=== PATIENT | female | born 1975 | race Caucasian/White ===

== ENCOUNTER 2017-01-15 22:40 | Emergency (ER) | payer SELFPAY ==
[~2017-01-15] VITALS: Ht 165.1 cm; Wt 98.0 kg
[2017-01-16] MEDS ORDERED: SODIUM CHLORIDE 0.9% 1,000 ML IV ONE (00:36)
[2017-01-16] MEDS: AMPICILLIN SOD/SULBACTAM NA 3 G in SODIUM CHLORIDE 0.9% 100 ML IV SCH ×2 (00:45→06:45)
[2017-01-16 00:59] LABS: CHLORIDE 100 mEq/L (98-107); EOSINOPHILS % 1.1 % (0.0-5.0); HEMATOCRIT. 37.7 % (36.0-48.0); HEMOGLOBIN. 12.7 g/dL (12.0-16.0); LYMPHOCYTES % 44.1 % (20.0-50.0); MEAN CORPUSCULAR HEMOGLOBIN 28.3 pg (28.0-32.0); MEAN CORPUSCULAR VOLUME 83.9 fL (81.0-99.0); MEAN PLATELET VOLUME 11.4 fl (7.4-10.4); NEUTROPHILS % 45.8 % (40.0-76.0); PLATELET 209 x1000/uL (130-400); RED BLOOD CELL COUNT 4.49 mill/uL (4.2-5.4)
[2017-01-16 01:00] LABS: CLARITY URINE CLEAR (CLEAR); COLOR URINE DARK YELLOW (YELLOW); GLUCOSE URINE 3+ (NEGATIVE); KETONES URINE TRACE (NEGATIVE); LEUKOCYTE ESTERASE URINE NEGATIVE (NEGATIVE); NITRITE URINE NEGATIVE (NEGATIVE); OCCULT BLOOD URINE TRACE (NEGATIVE); PH URINE 5.5 (4.5-8.0); PROTEIN URINE NEGATIVE (NEGATIVE); SPECIFIC GRAVITY URINE 1.028 (1.005-1.030)
[2017-01-16 01:08] LABS: CARBON DIOXIDE 26 mEq/L (21-32)
[2017-01-16] MEDS ORDERED: HYDROCODONE/ACETAMINOPHEN 5/325MG TABLET PO ONE (04:15)
[2017-01-16 08:32] VITALS: BP 147/79
== END 2017-01-16 09:37 | disposition left against medical advice (07) ==
LOC: EDBD 22:40 → ER 22:42 → CANBEDREQ 01-16 05:59 → ER 01-16 09:37 → CANBEDREQ 01-16 22:45
DX: E11.52 Type 2 diabetes mellitus with diabetic peripheral angiopathy with gangrene (principal); F17.200 Nicotine dependence, unspecified, uncomplicated
CPT/HCPCS: 36415; 71010; 73660; 80053; 81001; 81025; 85025; 85610; 87040; 96365; 96366; 99285; J0295; J7030; Z7610; J7050

== ENCOUNTER 2019-01-16 15:30 | Inpatient (IN) | payer OTHER, MEDICAID ==
[~2019-01-16] VITALS: Ht 167.6 cm; Wt 85.3 kg
[2019-01-16 16:37] LABS: BASOPHILS % 2.1 % (0.0-2.0); EOSINOPHILS % 0.6 % (0.0-5.0); HEMATOCRIT. 37.8 % (36.0-48.0); LYMPHOCYTES % 16.7 % (20.0-50.0); MEAN CORPUSCULAR HEMOGLOBIN 25.7 pg (28.0-32.0); MEAN CORPUSCULAR VOLUME 81.1 fL (81.0-99.0); MEAN PLATELET VOLUME 9.2 fl (7.4-10.4); MONOCYTES % 8.4 % (2.0-8.0); NEUTROPHILS % 72.2 % (40.0-76.0); PLATELET 283 x1000/uL (130-400); RED BLOOD CELL COUNT 4.66 mill/uL (4.2-5.4); RED CELL DISTRIBUTION WIDTH 20.6 % (11.6-14.6)
[2019-01-16 16:41] LABS: INR 1.1; PROTHROMBIN TIME 11.5 sec (9.6-11.0)
[2019-01-16 16:44] LABS: CHLORIDE 110 mEq/L (98-107)
[2019-01-16 17:00] LABS: B-HCG QUANTITATIVE < 1 mIU/mL (<3)
[2019-01-16 17:01] LABS: HCG SCREEN NEGATIVE
[2019-01-16] MEDS ORDERED: FUROSEMIDE 40MG/4ML VIAL IVP NR (17:45)
[2019-01-16 19:00] LABS: UCG SCREEN NEGATIVE
[2019-01-16 19:02] LABS: CLARITY URINE TURBID (CLEAR); COLOR URINE DARK YELLOW (YELLOW); KETONES URINE TRACE (NEGATIVE); LEUKOCYTE ESTERASE URINE 1+ (NEGATIVE); NITRITE URINE NEGATIVE (NEGATIVE); OCCULT BLOOD URINE 2+ (NEGATIVE); PROTEIN URINE 4+ (NEGATIVE); SPECIFIC GRAVITY URINE 1.024 (1.005-1.030)
[2019-01-16] MEDS ORDERED: CLONIDINE 0.1MG TABLET PO ONE (20:45)
[2019-01-16 22:00] VITALS: BP 145/66
[2019-01-16] MEDS ORDERED: DEXTROSE 50% WATER 50ML SYRINGE IV PRN (23:30)
[2019-01-16] MEDS ORDERED: MORPHINE SULFATE 2 MG/ML CPJ (NOT FOR IM USE) IV PRN (23:30)
[2019-01-17] VITALS (7 sets, daily range): BP systolic 104–150; BP diastolic 48–73
[2019-01-17] MEDS: BLOOD SUGAR DIAGNOSTIC STRIP TEST SCH ×4 (05:34→21:38)
[2019-01-17] MEDS: INSULIN LISPRO 100 UNITS/ML SUBCUT SCH ×4 (05:44→21:00)
[2019-01-17] MEDS: FUROSEMIDE 40MG/4ML VIAL IVP SCH ×3 (05:44→21:50)
[2019-01-17] MEDS: METFORMIN HCL 500MG TABLET PO SCH ×2 (07:52→17:21)
[2019-01-17] MEDS ORDERED: CARVEDILOL 3.125 MG TABLET PO SCH (09:00)
[2019-01-17] MEDS ORDERED: ONDANSETRON HCL 4MG/2ML INJ IV PRN (09:00)
[2019-01-17] MEDS: AMLODIPINE 10MG TABLET PO SCH (09:27)
[2019-01-17] MEDS: LISINOPRIL 20MG TABLET PO SCH (09:27)
[2019-01-17] MEDS: ASPIRIN 325MG EC TABLET PO SCH (09:27)
[2019-01-17] MEDS: ENOXAPARIN 40MG/0.4ML SYR SUBCUT SCH ×2 (09:27→21:50)
[2019-01-17] MEDS: CARVEDILOL 12.5MG TABLET PO SCH ×2 (09:27→17:21)
[2019-01-17 14:55] LABS: *BARBITURATES SCREEN URINE NEGATIVE (NEGATIVE); *BENZODIAZEPINES SCREEN URINE NEGATIVE (NEGATIVE); OPIATES URINE SCREEN NEGATIVE (NEGATIVE)
[2019-01-17 14:57] LABS: CANNABINOID URINE SCREEN NEGATIVE (NEGATIVE)
[2019-01-17 14:58] LABS: *COCAINE SCREEN URINE NEGATIVE (NEGATIVE)
[2019-01-17 15:00] LABS: *AMPHETAMINES SCREEN URINE NEGATIVE (NEGATIVE)
[2019-01-17 15:11] LABS: PHENCYCLIDINE URINE SCREEN NEGATIVE (NEGATIVE)
[2019-01-17 15:12] LABS: METHADONE URINE SCREEN NEGATIVE (NEGATIVE)
[2019-01-17] MEDS: CEFTRIAXONE 1 G PREMIX 50 ML IV SCH (17:22)
[2019-01-18] VITALS: BP 102/51
[2019-01-18 04:00] VITALS: BP 104/51
[2019-01-18] MEDS: FUROSEMIDE 40MG/4ML VIAL IVP SCH ×3 (05:55→21:22)
[2019-01-18] MEDS: BLOOD SUGAR DIAGNOSTIC STRIP TEST SCH ×4 (07:08→21:22)
[2019-01-18 07:25] LABS: EOSINOPHILS % 0.6 % (0.0-5.0); HEMATOCRIT. 30.1 % (36.0-48.0); HEMOGLOBIN. 9.6 g/dL (12.0-16.0); LYMPHOCYTES % 22.6 % (20.0-50.0); MEAN CORPUSCULAR VOLUME 81.6 fL (81.0-99.0); MEAN PLATELET VOLUME 8.8 fl (7.4-10.4); MONOCYTES % 9.8 % (2.0-8.0); PLATELET 238 x1000/uL (130-400); RED BLOOD CELL COUNT 3.68 mill/uL (4.2-5.4); RED CELL DISTRIBUTION WIDTH 20.1 % (11.6-14.6)
[2019-01-18] MEDS: INSULIN LISPRO 100 UNITS/ML SUBCUT SCH ×4 (07:40→21:00)
[2019-01-18 08:00] VITALS: BP 130/67
[2019-01-18] MEDS: ASPIRIN 325MG EC TABLET PO SCH (08:30)
[2019-01-18] MEDS: ENOXAPARIN 40MG/0.4ML SYR SUBCUT SCH ×2 (08:30→21:22)
[2019-01-18] MEDS: AMLODIPINE 10MG TABLET PO SCH (08:30)
[2019-01-18] MEDS: METFORMIN HCL 500MG TABLET PO SCH ×2 (08:30→17:49)
[2019-01-18] MEDS: LISINOPRIL 20MG TABLET PO SCH (08:31)
[2019-01-18] MEDS: CARVEDILOL 12.5MG TABLET PO SCH ×2 (08:31→17:49)
[2019-01-18 12:00] VITALS: BP 129/68
[2019-01-18 16:00] VITALS: BP 148/59
[2019-01-18] MEDS: CEFTRIAXONE 1 G PREMIX 50 ML IV SCH (16:42)
[2019-01-18] MEDS: HYDROCODONE/ACETAMINOPHEN 5/325MG TABLET PO PRN (17:49)
[2019-01-18 20:00] VITALS: BP 163/78
[2019-01-19] VITALS: BP 155/69
[2019-01-19 04:00] VITALS: BP 131/63
[2019-01-19] MEDS: FUROSEMIDE 40MG/4ML VIAL IVP SCH (05:12)
[2019-01-19] MEDS: INSULIN LISPRO 100 UNITS/ML SUBCUT SCH ×4 (06:16→21:00)
[2019-01-19] MEDS: BLOOD SUGAR DIAGNOSTIC STRIP TEST SCH ×4 (06:16→20:58)
[2019-01-19 06:41] LABS: BASOPHILS % 2.2 % (0.0-2.0); EOSINOPHILS % 1.2 % (0.0-5.0); HEMOGLOBIN. 10.4 g/dL (12.0-16.0); LYMPHOCYTES % 22.7 % (20.0-50.0); MEAN CORPUSCULAR HEMOGLOBIN 25.9 pg (28.0-32.0); MEAN CORPUSCULAR VOLUME 82.3 fL (81.0-99.0); MEAN PLATELET VOLUME 8.8 fl (7.4-10.4); MONOCYTES % 9.9 % (2.0-8.0); PLATELET 250 x1000/uL (130-400); RED BLOOD CELL COUNT 4.01 mill/uL (4.2-5.4); RED CELL DISTRIBUTION WIDTH 20.5 % (11.6-14.6)
[2019-01-19 08:00] VITALS: BP_SYST 122; BP_SYST 123; BP_DIAS 62; BP_DIAS 89
[2019-01-19] MEDS: METFORMIN HCL 500MG TABLET PO SCH ×2 (08:14→17:57)
[2019-01-19] MEDS: CARVEDILOL 12.5MG TABLET PO SCH ×2 (08:14→17:56)
[2019-01-19] MEDS: AMLODIPINE 10MG TABLET PO SCH (08:14)
[2019-01-19] MEDS: LISINOPRIL 20MG TABLET PO SCH (08:15)
[2019-01-19] MEDS: ENOXAPARIN 40MG/0.4ML SYR SUBCUT SCH ×2 (08:15→21:05)
[2019-01-19 12:00] VITALS: BP 131/76
[2019-01-19] MEDS: FUROSEMIDE 100MG/10ML VIAL IV SCH ×2 (13:53→17:57)
[2019-01-19 16:00] VITALS: BP 156/88
[2019-01-19] MEDS: CEFTRIAXONE 1 G PREMIX 50 ML IV SCH (17:56)
[2019-01-19 20:00] VITALS: BP 135/67
[2019-01-20] VITALS (9 sets, daily range): BP systolic 127–168; BP diastolic 63–87
[2019-01-20] MEDS: INSULIN LISPRO 100 UNITS/ML SUBCUT SCH ×4 (07:40→21:00)
[2019-01-20] MEDS: BLOOD SUGAR DIAGNOSTIC STRIP TEST SCH ×4 (07:51→21:34)
[2019-01-20 07:56] LABS: BASOPHILS % 2.1 % (0.0-2.0); EOSINOPHILS % 1.3 % (0.0-5.0); HEMATOCRIT. 32.5 % (36.0-48.0); HEMOGLOBIN. 10.2 g/dL (12.0-16.0); LYMPHOCYTES % 20.8 % (20.0-50.0); MEAN CORPUSCULAR HEMOGLOBIN 25.7 pg (28.0-32.0); MEAN CORPUSCULAR VOLUME 81.9 fL (81.0-99.0); MEAN PLATELET VOLUME 8.9 fl (7.4-10.4); MONOCYTES % 9.5 % (2.0-8.0); NEUTROPHILS % 66.3 % (40.0-76.0); PLATELET 265 x1000/uL (130-400); RED BLOOD CELL COUNT 3.97 mill/uL (4.2-5.4)
[2019-01-20] MEDS: CARVEDILOL 12.5MG TABLET PO SCH ×2 (08:39→17:04)
[2019-01-20] MEDS: LISINOPRIL 20MG TABLET PO SCH (08:39)
[2019-01-20] MEDS: METFORMIN HCL 500MG TABLET PO SCH ×2 (08:39→17:03)
[2019-01-20] MEDS: FUROSEMIDE 100MG/10ML VIAL IV SCH ×3 (08:40→17:03)
[2019-01-20] MEDS: ENOXAPARIN 40MG/0.4ML SYR SUBCUT SCH ×2 (08:40→21:00)
[2019-01-20] MEDS: AMLODIPINE 10MG TABLET PO SCH (08:40)
[2019-01-20 11:42] LABS: BG BASE EXCESS -1.5 mmol/L (-2.0-2.0); BG CARBOXYHEMOGLOBIN 0.2 % (0.5-1.5); BG DEOXYHEMOGLOBIN 8.7 % (0.0-5.0); BG FRACTION INSPIRED OXYGEN 28; BG HCO3 ACT 22.5 mmol/L (22.0-26.0); BG METHEMOGLOBIN 0.2 % (0.0-1.5); BG OXYGEN SATURATION 91.3 % (92.0-98.5); BG OXYHEMOGLOBIN 90.9 % (94.0-97.0); BG PCO2 35.7 mmHg (35.0-45.0); BG PH 7.418 (7.350-7.450); BG PO2 64.1 mmHg (75.0-100.0); BG SAMPLE SITE RIGHT BRACHIAL; BG TOTAL HEMOGLOBIN 11.3 g/dL (12.0-18.0); BG VENT MODE NASAL CANNULA
[2019-01-20] MEDS: CEFTRIAXONE 1 G PREMIX 50 ML IV SCH (16:28)
[2019-01-20 16:50] LABS: HEPATITIS B SURFACE ANTIGEN NEGATIVE
[2019-01-20 17:20] LABS: HEPATITIS A AB IGM NEGATIVE (NEGATIVE)
[2019-01-21] VITALS (10 sets, daily range): BP systolic 117–140; BP diastolic 69–84
[2019-01-21] MEDS: BLOOD SUGAR DIAGNOSTIC STRIP TEST SCH ×4 (06:17→20:56)
[2019-01-21 06:51] LABS: BASOPHILS % 2.3 % (0.0-2.0); EOSINOPHILS % 1.3 % (0.0-5.0); HEMATOCRIT. 33.1 % (36.0-48.0); HEMOGLOBIN. 10.6 g/dL (12.0-16.0); MEAN CORPUSCULAR HEMOGLOBIN 25.9 pg (28.0-32.0); MEAN CORPUSCULAR VOLUME 80.8 fL (81.0-99.0); MEAN PLATELET VOLUME 8.6 fl (7.4-10.4); MONOCYTES % 9.3 % (2.0-8.0); NEUTROPHILS % 68.1 % (40.0-76.0); PLATELET 287 x1000/uL (130-400); RED CELL DISTRIBUTION WIDTH 20.3 % (11.6-14.6)
[2019-01-21] MEDS: CARVEDILOL 12.5MG TABLET PO SCH ×2 (09:00→17:14)
[2019-01-21] MEDS: AMLODIPINE 10MG TABLET PO SCH (09:00)
[2019-01-21] MEDS: METFORMIN HCL 500MG TABLET PO SCH ×2 (09:00→17:14)
[2019-01-21] MEDS: LISINOPRIL 20MG TABLET PO SCH (09:00)
[2019-01-21] MEDS: FUROSEMIDE 100MG/10ML VIAL IV SCH ×3 (09:00→17:13)
[2019-01-21] MEDS: ENOXAPARIN 40MG/0.4ML SYR SUBCUT SCH (09:01)
[2019-01-21] MEDS: INSULIN LISPRO 100 UNITS/ML SUBCUT SCH ×3 (12:19→20:56)
[2019-01-21] MEDS: HYDROCODONE/ACETAMINOPHEN 5/325MG TABLET PO PRN (12:38)
[2019-01-21] MEDS: LOPERAMIDE 2 MG/10 ML UDC PO PRN (12:47)
[2019-01-21] MEDS: CEFTRIAXONE 1 G PREMIX 50 ML IV SCH (17:14)
[2019-01-22] VITALS (12 sets, daily range): BP systolic 89–138; BP diastolic 63–90
[2019-01-22 04:12] LABS: HIV SCREEN 4G Non Reactive (Non Reactive)
[2019-01-22] MEDS: BLOOD SUGAR DIAGNOSTIC STRIP TEST SCH ×4 (06:33→21:52)
[2019-01-22] MEDS: INSULIN LISPRO 100 UNITS/ML SUBCUT SCH ×4 (07:28→21:00)
[2019-01-22] MEDS ORDERED: SODIUM BICARBONATE 4% (2.4MEQ) 5ML VIAL IV ONE (07:47)
[2019-01-22] MEDS: CARVEDILOL 12.5MG TABLET PO SCH ×2 (08:00→17:44)
[2019-01-22] MEDS: METFORMIN HCL 500MG TABLET PO SCH ×2 (08:00→17:44)
[2019-01-22] MEDS: LISINOPRIL 20MG TABLET PO SCH (10:00)
[2019-01-22] MEDS: FUROSEMIDE 100MG/10ML VIAL IV SCH ×3 (10:00→17:41)
[2019-01-22] MEDS: AMLODIPINE 10MG TABLET PO SCH (10:01)
[2019-01-22] MEDS ORDERED: MORPHINE SULFATE 2 MG/ML CPJ (NOT FOR IM USE) IV PRN (10:30)
[2019-01-22] MEDS: NYSTATIN POWDER 15GM TOP SCH ×2 (11:00→17:42)
[2019-01-22] MEDS: LOPERAMIDE 2 MG/10 ML UDC PO PRN (14:46)
[2019-01-22 16:58] LABS: BASOPHILS % 1.9 % (0.0-2.0); EOSINOPHILS % 0.4 % (0.0-5.0); HEMATOCRIT. 35.5 % (36.0-48.0); HEMOGLOBIN. 11.7 g/dL (12.0-16.0); LYMPHOCYTES % 14.3 % (20.0-50.0); MEAN CORPUSCULAR HEMOGLOBIN 26.6 pg (28.0-32.0); MEAN PLATELET VOLUME 9.2 fl (7.4-10.4); MONOCYTES % 6.9 % (2.0-8.0); NEUTROPHILS % 76.5 % (40.0-76.0); PLATELET 304 x1000/uL (130-400); RED BLOOD CELL COUNT 4.39 mill/uL (4.2-5.4); RED CELL DISTRIBUTION WIDTH 20.9 % (11.6-14.6)
[2019-01-22] MEDS: CEFTRIAXONE 1 G PREMIX 50 ML IV SCH (17:42)
[2019-01-23] VITALS (9 sets, daily range): BP systolic 110–145; BP diastolic 57–76
[2019-01-23 06:23] LABS: BASOPHILS % 1.9 % (0.0-2.0); EOSINOPHILS % 0.6 % (0.0-5.0); HEMATOCRIT. 32.6 % (36.0-48.0); HEMOGLOBIN. 10.1 g/dL (12.0-16.0); LYMPHOCYTES % 22.3 % (20.0-50.0); MEAN CORPUSCULAR HEMOGLOBIN 25.4 pg (28.0-32.0); MEAN CORPUSCULAR VOLUME 81.5 fL (81.0-99.0); MEAN PLATELET VOLUME 8.9 fl (7.4-10.4); MONOCYTES % 10.2 % (2.0-8.0); PLATELET 239 x1000/uL (130-400); RED CELL DISTRIBUTION WIDTH 20.5 % (11.6-14.6)
[2019-01-23] MEDS: BLOOD SUGAR DIAGNOSTIC STRIP TEST SCH ×4 (07:18→21:00)
[2019-01-23] MEDS: INSULIN LISPRO 100 UNITS/ML SUBCUT SCH ×4 (07:55→21:00)
[2019-01-23] MEDS: METFORMIN HCL 500MG TABLET PO SCH ×2 (07:58→17:16)
[2019-01-23] MEDS: FUROSEMIDE 100MG/10ML VIAL IV SCH ×3 (08:00→16:20)
[2019-01-23] MEDS: LISINOPRIL 20MG TABLET PO SCH (08:00)
[2019-01-23] MEDS: AMLODIPINE 10MG TABLET PO SCH (08:01)
[2019-01-23] MEDS: NYSTATIN POWDER 15GM TOP SCH ×2 (08:01→16:44)
[2019-01-23] MEDS: CARVEDILOL 12.5MG TABLET PO SCH (08:09)
[2019-01-23] MEDS: LOPERAMIDE 2 MG/10 ML UDC PO PRN (09:13)
[2019-01-23] MEDS: ENOXAPARIN 40MG/0.4ML SYR SUBCUT SCH ×2 (09:19→22:15)
[2019-01-23] MEDS: CEFTRIAXONE 1 G PREMIX 50 ML IV SCH (16:20)
[2019-01-23] MEDS: CARVEDILOL 3.125 MG TABLET PO SCH (17:17)
[2019-01-24] VITALS (9 sets, daily range): BP systolic 120–150; BP diastolic 64–88
[2019-01-24 05:28] LABS: BASOPHILS % 2.2 % (0.0-2.0); HEMATOCRIT. 33.9 % (36.0-48.0); HEMOGLOBIN. 10.7 g/dL (12.0-16.0); LYMPHOCYTES % 20.9 % (20.0-50.0); MEAN CORPUSCULAR HEMOGLOBIN 25.8 pg (28.0-32.0); MEAN CORPUSCULAR VOLUME 81.6 fL (81.0-99.0); MEAN PLATELET VOLUME 8.6 fl (7.4-10.4); MONOCYTES % 9.1 % (2.0-8.0); NEUTROPHILS % 66.8 % (40.0-76.0); PLATELET 253 x1000/uL (130-400); RED BLOOD CELL COUNT 4.16 mill/uL (4.2-5.4); RED CELL DISTRIBUTION WIDTH 20.2 % (11.6-14.6)
[2019-01-24 05:35] LABS: CHLORIDE 107 mEq/L (98-107)
[2019-01-24] MEDS: CARVEDILOL 3.125 MG TABLET PO SCH ×2 (08:00→18:15)
[2019-01-24] MEDS: INSULIN LISPRO 100 UNITS/ML SUBCUT SCH ×4 (08:00→20:44)
[2019-01-24] MEDS: BLOOD SUGAR DIAGNOSTIC STRIP TEST SCH ×4 (08:03→20:44)
[2019-01-24] MEDS: METFORMIN HCL 500MG TABLET PO SCH ×2 (08:41→18:15)
[2019-01-24] MEDS: AMLODIPINE 10MG TABLET PO SCH (08:42)
[2019-01-24] MEDS: ENOXAPARIN 40MG/0.4ML SYR SUBCUT SCH ×2 (08:42→20:46)
[2019-01-24] MEDS: LISINOPRIL 20MG TABLET PO SCH (08:42)
[2019-01-24] MEDS: FUROSEMIDE 100MG/10ML VIAL IV SCH ×3 (10:43→18:15)
[2019-01-24] MEDS: NYSTATIN POWDER 15GM TOP SCH ×2 (10:50→18:15)
[2019-01-24] MEDS: MAGNESIUM OXIDE 400MG TABLET PO SCH (11:40)
[2019-01-24] MEDS ORDERED: MAGNESIUM 2 G PREMIX 50 ML IV SCH (12:00)
[2019-01-25] VITALS (7 sets, daily range): BP systolic 128–158; BP diastolic 64–81
[2019-01-25] MEDS: BLOOD SUGAR DIAGNOSTIC STRIP TEST SCH ×4 (06:31→20:49)
[2019-01-25] MEDS: INSULIN LISPRO 100 UNITS/ML SUBCUT SCH (06:57)
[2019-01-25 06:58] LABS: BASOPHILS % 2.8 % (0.0-2.0); EOSINOPHILS % 1.1 % (0.0-5.0); HEMOGLOBIN. 11.1 g/dL (12.0-16.0); LYMPHOCYTES % 20.8 % (20.0-50.0); MEAN CORPUSCULAR HEMOGLOBIN 26.3 pg (28.0-32.0); MEAN CORPUSCULAR VOLUME 80.8 fL (81.0-99.0); MEAN PLATELET VOLUME 8.7 fl (7.4-10.4); MONOCYTES % 10.9 % (2.0-8.0); NEUTROPHILS % 64.4 % (40.0-76.0); PLATELET 282 x1000/uL (130-400); RED BLOOD CELL COUNT 4.21 mill/uL (4.2-5.4); RED CELL DISTRIBUTION WIDTH 20.2 % (11.6-14.6)
[2019-01-25 07:08] LABS: CHLORIDE 106 mEq/L (98-107)
[2019-01-25] MEDS: ENOXAPARIN 40MG/0.4ML SYR SUBCUT SCH (08:44)
[2019-01-25] MEDS: FUROSEMIDE 100MG/10ML VIAL IV SCH ×3 (08:44→16:06)
[2019-01-25] MEDS: LISINOPRIL 20MG TABLET PO SCH (08:45)
[2019-01-25] MEDS: CARVEDILOL 3.125 MG TABLET PO SCH ×2 (08:45→17:49)
[2019-01-25] MEDS: MAGNESIUM OXIDE 400MG TABLET PO SCH (08:45)
[2019-01-25] MEDS: AMLODIPINE 10MG TABLET PO SCH (08:45)
[2019-01-25] MEDS: METFORMIN HCL 500MG TABLET PO SCH ×2 (08:45→17:49)
[2019-01-25] MEDS: NYSTATIN POWDER 15GM TOP SCH ×2 (09:06→16:07)
[2019-01-25] MEDS: LACTOBACILLUS GG CAPSULE PO SCH (12:00)
[2019-01-25] MEDS ORDERED: METOLAZONE 2.5MG TABLET PO NR (16:00)
[2019-01-25] MEDS ORDERED: CLONIDINE 0.1MG TABLET PO PRN (20:15)
[2019-01-25] MEDS: ENOXAPARIN 30MG/0.3ML SYR SUBCUT SCH (20:49)
[2019-01-26] VITALS: BP 130/60
[2019-01-26 04:00] VITALS: BP 126/64
[2019-01-26] MEDS: BLOOD SUGAR DIAGNOSTIC STRIP TEST SCH ×4 (06:30→21:00)
[2019-01-26 07:01] LABS: BASOPHILS % 2.3 % (0.0-2.0); EOSINOPHILS % 0.8 % (0.0-5.0); HEMATOCRIT. 32.6 % (36.0-48.0); HEMOGLOBIN. 10.3 g/dL (12.0-16.0); LYMPHOCYTES % 22.1 % (20.0-50.0); MEAN CORPUSCULAR HEMOGLOBIN 25.8 pg (28.0-32.0); MEAN CORPUSCULAR VOLUME 81.6 fL (81.0-99.0); MEAN PLATELET VOLUME 8.7 fl (7.4-10.4); MONOCYTES % 11.4 % (2.0-8.0); NEUTROPHILS % 63.4 % (40.0-76.0); PLATELET 264 x1000/uL (130-400); RED CELL DISTRIBUTION WIDTH 19.9 % (11.6-14.6)
[2019-01-26 07:05] LABS: CHLORIDE 106 mEq/L (98-107)
[2019-01-26 08:00] VITALS: BP 142/67
[2019-01-26] MEDS: AMLODIPINE 10MG TABLET PO SCH (09:07)
[2019-01-26] MEDS: ENOXAPARIN 30MG/0.3ML SYR SUBCUT SCH ×2 (09:07→21:26)
[2019-01-26] MEDS: METFORMIN HCL 500MG TABLET PO SCH ×2 (09:08→19:00)
[2019-01-26] MEDS: CARVEDILOL 3.125 MG TABLET PO SCH ×2 (09:08→19:00)
[2019-01-26] MEDS: FUROSEMIDE 100MG/10ML VIAL IV SCH ×3 (09:08→19:01)
[2019-01-26] MEDS: LACTOBACILLUS GG CAPSULE PO SCH (09:09)
[2019-01-26] MEDS: LISINOPRIL 20MG TABLET PO SCH (09:09)
[2019-01-26] MEDS: MAGNESIUM OXIDE 400MG TABLET PO SCH (09:09)
[2019-01-26] MEDS: NYSTATIN POWDER 15GM TOP SCH ×2 (09:15→19:02)
[2019-01-26 12:00] VITALS: BP 124/61
[2019-01-26 16:00] VITALS: BP 139/70
[2019-01-26 17:07] LABS: BG BASE EXCESS 3.7 mmol/L (-2.0-2.0); BG CARBOXYHEMOGLOBIN 0.6 % (0.5-1.5); BG FRACTION INSPIRED OXYGEN 21; BG METHEMOGLOBIN 0.2 % (0.0-1.5); BG OXYGEN SATURATION 80.8 % (92.0-98.5); BG OXYHEMOGLOBIN 80.2 % (94.0-97.0); BG PCO2 41.3 mmHg (35.0-45.0); BG PH 7.449 (7.350-7.450); BG SAMPLE SITE RIGHT BRACHIAL; BG TOTAL HEMOGLOBIN 11.4 g/dL (12.0-18.0); BG VENT MODE ROOM AIR
[2019-01-26 19:45] VITALS: BP 148/72
[2019-01-26] MEDS: LOPERAMIDE 2 MG/10 ML UDC PO PRN (21:24)
[2019-01-27] VITALS: BP 148/68
[2019-01-27 04:07] VITALS: BP 128/63
[2019-01-27 06:52] LABS: BASOPHILS % 2.3 % (0.0-2.0); EOSINOPHILS % 0.9 % (0.0-5.0); HEMOGLOBIN. 10.1 g/dL (12.0-16.0); LYMPHOCYTES % 21.4 % (20.0-50.0); MEAN CORPUSCULAR HEMOGLOBIN 25.7 pg (28.0-32.0); MEAN CORPUSCULAR VOLUME 81.7 fL (81.0-99.0); MEAN PLATELET VOLUME 8.7 fl (7.4-10.4); MONOCYTES % 11.9 % (2.0-8.0); NEUTROPHILS % 63.5 % (40.0-76.0); PLATELET 272 x1000/uL (130-400); RED BLOOD CELL COUNT 3.91 mill/uL (4.2-5.4); RED CELL DISTRIBUTION WIDTH 19.8 % (11.6-14.6)
[2019-01-27 07:04] LABS: CHLORIDE 102 mEq/L (98-107)
[2019-01-27] MEDS: BLOOD SUGAR DIAGNOSTIC STRIP TEST SCH ×4 (07:12→22:14)
[2019-01-27] MEDS: CARVEDILOL 3.125 MG TABLET PO SCH ×2 (07:50→17:10)
[2019-01-27 08:00] VITALS: BP 136/69
[2019-01-27] MEDS: ENOXAPARIN 30MG/0.3ML SYR SUBCUT SCH ×2 (08:25→22:06)
[2019-01-27] MEDS: FUROSEMIDE 100MG/10ML VIAL IV SCH ×3 (08:26→17:10)
[2019-01-27] MEDS: NYSTATIN POWDER 15GM TOP SCH ×2 (08:26→17:10)
[2019-01-27] MEDS: METFORMIN HCL 500MG TABLET PO SCH ×2 (08:27→17:09)
[2019-01-27] MEDS: MAGNESIUM OXIDE 400MG TABLET PO SCH (08:27)
[2019-01-27] MEDS: LACTOBACILLUS GG CAPSULE PO SCH (08:27)
[2019-01-27] MEDS: AMLODIPINE 10MG TABLET PO SCH (08:29)
[2019-01-27] MEDS: LISINOPRIL 20MG TABLET PO SCH (08:29)
[2019-01-27] MEDS: ASPIRIN 81MG EC TABLET PO SCH (11:38)
[2019-01-27 12:00] VITALS: BP 133/74
[2019-01-27] MEDS: LOPERAMIDE 2 MG/10 ML UDC PO PRN (14:41)
[2019-01-27 16:00] VITALS: BP 136/70
[2019-01-27 20:52] VITALS: BP 152/78
[2019-01-28 00:34] VITALS: BP 120/66
[2019-01-28 04:00] VITALS: BP 135/68
[2019-01-28] MEDS: BLOOD SUGAR DIAGNOSTIC STRIP TEST SCH ×4 (06:09→22:00)
[2019-01-28 07:15] LABS: CHLORIDE 102 mEq/L (98-107)
[2019-01-28] MEDS: METFORMIN HCL 500MG TABLET PO SCH ×2 (07:50→17:50)
[2019-01-28 08:00] VITALS: BP 144/65
[2019-01-28] MEDS: AMLODIPINE 10MG TABLET PO SCH (09:12)
[2019-01-28] MEDS: LISINOPRIL 20MG TABLET PO SCH (09:12)
[2019-01-28] MEDS: CARVEDILOL 3.125 MG TABLET PO SCH ×2 (09:12→19:54)
[2019-01-28] MEDS: ASPIRIN 81MG EC TABLET PO SCH (09:12)
[2019-01-28] MEDS: ENOXAPARIN 30MG/0.3ML SYR SUBCUT SCH ×2 (09:13→22:37)
[2019-01-28] MEDS: LACTOBACILLUS GG CAPSULE PO SCH (09:13)
[2019-01-28] MEDS: MAGNESIUM OXIDE 400MG TABLET PO SCH (09:13)
[2019-01-28] MEDS: NYSTATIN POWDER 15GM TOP SCH ×2 (09:15→19:55)
[2019-01-28] MEDS: FUROSEMIDE 100MG/10ML VIAL IV SCH ×3 (10:00→19:36)
[2019-01-28 12:00] VITALS: BP 139/70
[2019-01-28 16:00] VITALS: BP 154/73
[2019-01-28 20:00] VITALS: BP 164/84
[2019-01-29] VITALS: BP 146/76
[2019-01-29 04:00] VITALS: BP 133/67
[2019-01-29] MEDS: BLOOD SUGAR DIAGNOSTIC STRIP TEST SCH ×4 (07:07→21:16)
[2019-01-29 07:55] VITALS: BP 133/64
[2019-01-29 08:06] LABS: CHLORIDE 100 mEq/L (98-107)
[2019-01-29 08:24] LABS: BASOPHILS % 1.8 % (0.0-2.0); HEMATOCRIT. 31.3 % (36.0-48.0); HEMOGLOBIN. 9.9 g/dL (12.0-16.0); LYMPHOCYTES % 20.8 % (20.0-50.0); MEAN CORPUSCULAR HEMOGLOBIN 25.9 pg (28.0-32.0); MEAN CORPUSCULAR VOLUME 81.6 fL (81.0-99.0); MEAN PLATELET VOLUME 8.6 fl (7.4-10.4); MONOCYTES % 12.6 % (2.0-8.0); NEUTROPHILS % 63.8 % (40.0-76.0); PLATELET 300 x1000/uL (130-400); RED BLOOD CELL COUNT 3.84 mill/uL (4.2-5.4); RED CELL DISTRIBUTION WIDTH 19.6 % (11.6-14.6)
[2019-01-29] MEDS: LISINOPRIL 20MG TABLET PO SCH (08:40)
[2019-01-29] MEDS: ASPIRIN 81MG EC TABLET PO SCH (08:40)
[2019-01-29] MEDS: METFORMIN HCL 500MG TABLET PO SCH ×2 (08:44→18:02)
[2019-01-29] MEDS: MAGNESIUM OXIDE 400MG TABLET PO SCH (08:45)
[2019-01-29] MEDS: LACTOBACILLUS GG CAPSULE PO SCH (08:45)
[2019-01-29] MEDS: CARVEDILOL 3.125 MG TABLET PO SCH ×2 (08:45→18:02)
[2019-01-29] MEDS: AMLODIPINE 10MG TABLET PO SCH (08:45)
[2019-01-29] MEDS: ENOXAPARIN 30MG/0.3ML SYR SUBCUT SCH ×2 (08:46→21:16)
[2019-01-29] MEDS: FUROSEMIDE 100MG/10ML VIAL IV SCH ×3 (08:46→18:02)
[2019-01-29 12:07] VITALS: BP 132/67
[2019-01-29 16:47] VITALS: BP 125/62
[2019-01-29] MEDS: NYSTATIN POWDER 15GM TOP SCH ×2 (17:00→18:02)
[2019-01-29] MEDS: LEVOFLOXACIN 500MG PREMIX 100 ML IV SCH (18:03)
[2019-01-29 18:43] LABS: CLARITY URINE CLEAR (CLEAR); COLOR URINE YELLOW (YELLOW); KETONES URINE NEGATIVE (NEGATIVE); LEUKOCYTE ESTERASE URINE NEGATIVE (NEGATIVE); NITRITE URINE NEGATIVE (NEGATIVE); OCCULT BLOOD URINE 2+ (NEGATIVE); PROTEIN URINE 1+ (NEGATIVE); SPECIFIC GRAVITY URINE 1.009 (1.005-1.030)
[2019-01-29 20:13] VITALS: BP 149/73
[2019-01-30] VITALS: BP 139/61
[2019-01-30 04:00] VITALS: BP 128/53
[2019-01-30 06:06] LABS: BASOPHILS % 1.9 % (0.0-2.0); EOSINOPHILS % 0.7 % (0.0-5.0); HEMATOCRIT. 31.3 % (36.0-48.0); LYMPHOCYTES % 21.5 % (20.0-50.0); MEAN CORPUSCULAR HEMOGLOBIN 26.1 pg (28.0-32.0); MEAN CORPUSCULAR VOLUME 82.1 fL (81.0-99.0); MEAN PLATELET VOLUME 9.2 fl (7.4-10.4); MONOCYTES % 12.9 % (2.0-8.0); PLATELET 311 x1000/uL (130-400); RED BLOOD CELL COUNT 3.82 mill/uL (4.2-5.4); RED CELL DISTRIBUTION WIDTH 19.4 % (11.6-14.6)
[2019-01-30 06:16] LABS: CHLORIDE 100 mEq/L (98-107)
[2019-01-30] MEDS: BLOOD SUGAR DIAGNOSTIC STRIP TEST SCH ×4 (06:29→21:28)
[2019-01-30 08:42] VITALS: BP 133/61
[2019-01-30] MEDS: NYSTATIN POWDER 15GM TOP SCH ×2 (09:26→16:51)
[2019-01-30] MEDS: FUROSEMIDE 100MG/10ML VIAL IV SCH ×3 (09:26→16:49)
[2019-01-30] MEDS: CARVEDILOL 3.125 MG TABLET PO SCH ×2 (09:27→16:50)
[2019-01-30] MEDS: LACTOBACILLUS GG CAPSULE PO SCH (09:27)
[2019-01-30] MEDS: MAGNESIUM OXIDE 400MG TABLET PO SCH (09:27)
[2019-01-30] MEDS: METFORMIN HCL 500MG TABLET PO SCH ×2 (09:27→16:50)
[2019-01-30] MEDS: AMLODIPINE 10MG TABLET PO SCH (09:27)
[2019-01-30] MEDS: LISINOPRIL 20MG TABLET PO SCH (09:28)
[2019-01-30 11:07] LABS: BG BASE EXCESS 7.5 mmol/L (-2.0-2.0); BG CARBOXYHEMOGLOBIN 0.6 % (0.5-1.5); BG FRACTION INSPIRED OXYGEN 28; BG HCO3 ACT 32.6 mmol/L (22.0-26.0); BG METHEMOGLOBIN 0.3 % (0.0-1.5); BG OXYGEN SATURATION 88.9 % (92.0-98.5); BG OXYHEMOGLOBIN 88.1 % (94.0-97.0); BG PCO2 48.6 mmHg (35.0-45.0); BG PH 7.444 (7.350-7.450); BG PO2 57.8 mmHg (75.0-100.0); BG SAMPLE SITE RIGHT BRACHIAL; BG TOTAL HEMOGLOBIN 10.6 g/dL (12.0-18.0); BG VENT MODE NASAL CANNULA
[2019-01-30 12:33] VITALS: BP 138/64
[2019-01-30] MEDS: LEVOFLOXACIN 500MG PREMIX 100 ML IV SCH (13:58)
[2019-01-30] MEDS: LOPERAMIDE 2 MG/10 ML UDC PO PRN (14:12)
[2019-01-30 16:03] VITALS: BP 149/70
[2019-01-30 20:50] VITALS: BP 154/76
[2019-01-31 00:43] VITALS: BP 141/62
[2019-01-31 04:00] VITALS: BP 146/73
[2019-01-31] MEDS: ACETAMINOPHEN 325MG TABLET PO PRN (04:55)
[2019-01-31] MEDS: BLOOD SUGAR DIAGNOSTIC STRIP TEST SCH ×4 (06:31→22:00)
[2019-01-31 07:06] LABS: CHLORIDE 100 mEq/L (98-107)
[2019-01-31 07:27] LABS: EOSINOPHILS % 0.4 % (0.0-5.0); HEMATOCRIT. 31.8 % (36.0-48.0); HEMOGLOBIN. 10.1 g/dL (12.0-16.0); MEAN CORPUSCULAR HEMOGLOBIN 26.2 pg (28.0-32.0); MEAN CORPUSCULAR VOLUME 82.4 fL (81.0-99.0); MEAN PLATELET VOLUME 9.1 fl (7.4-10.4); MONOCYTES % 11.6 % (2.0-8.0); PLATELET 330 x1000/uL (130-400); RED BLOOD CELL COUNT 3.86 mill/uL (4.2-5.4); RED CELL DISTRIBUTION WIDTH 19.6 % (11.6-14.6)
[2019-01-31 08:00] VITALS: BP 143/68
[2019-01-31] MEDS: FUROSEMIDE 100MG/10ML VIAL IV SCH ×3 (09:29→17:26)
[2019-01-31] MEDS: NYSTATIN POWDER 15GM TOP SCH ×2 (09:29→17:26)
[2019-01-31] MEDS: MAGNESIUM OXIDE 400MG TABLET PO SCH (09:31)
[2019-01-31] MEDS: LACTOBACILLUS GG CAPSULE PO SCH (09:31)
[2019-01-31] MEDS: CARVEDILOL 3.125 MG TABLET PO SCH ×2 (09:31→17:26)
[2019-01-31] MEDS: LISINOPRIL 20MG TABLET PO SCH (09:31)
[2019-01-31] MEDS: METFORMIN HCL 500MG TABLET PO SCH ×2 (09:31→17:26)
[2019-01-31] MEDS: AMLODIPINE 10MG TABLET PO SCH (09:32)
[2019-01-31 12:00] VITALS: BP 140/64
[2019-01-31] MEDS: LEVOFLOXACIN 500MG PREMIX 100 ML IV SCH (13:35)
[2019-01-31 16:00] VITALS: BP 148/71
[2019-01-31] MEDS: METRONIDAZOLE 500 MG PREMIX 100 ML IV SCH (17:26)
[2019-01-31 20:00] VITALS: BP 132/70
[2019-01-31] MEDS: GUAIFENESIN 600MG ER TABLET PO SCH (22:25)
[2019-02-01] VITALS: BP 134/71
[2019-02-01] MEDS: METRONIDAZOLE 500 MG PREMIX 100 ML IV SCH ×3 (03:04→17:30)
[2019-02-01 04:00] VITALS: BP 156/73
[2019-02-01 06:16] LABS: CHLORIDE 100 mEq/L (98-107)
[2019-02-01 06:20] LABS: BASOPHILS % 1.5 % (0.0-2.0); HEMATOCRIT. 31.6 % (36.0-48.0); LYMPHOCYTES % 17.6 % (20.0-50.0); MEAN CORPUSCULAR VOLUME 82.4 fL (81.0-99.0); MONOCYTES % 12.7 % (2.0-8.0); NEUTROPHILS % 67.2 % (40.0-76.0); PLATELET 331 x1000/uL (130-400); RED BLOOD CELL COUNT 3.84 mill/uL (4.2-5.4); RED CELL DISTRIBUTION WIDTH 19.1 % (11.6-14.6)
[2019-02-01] MEDS: BLOOD SUGAR DIAGNOSTIC STRIP TEST SCH ×4 (06:31→20:47)
[2019-02-01] MEDS: CARVEDILOL 3.125 MG TABLET PO SCH ×2 (07:50→17:30)
[2019-02-01 08:00] VITALS: BP 109/63
[2019-02-01] MEDS: FUROSEMIDE 100MG/10ML VIAL IV SCH ×3 (09:00→17:31)
[2019-02-01] MEDS: LISINOPRIL 20MG TABLET PO SCH (09:00)
[2019-02-01] MEDS: AMLODIPINE 10MG TABLET PO SCH (09:00)
[2019-02-01] MEDS: METFORMIN HCL 500MG TABLET PO SCH ×2 (09:46→17:30)
[2019-02-01] MEDS: GUAIFENESIN 600MG ER TABLET PO SCH ×2 (09:46→20:59)
[2019-02-01] MEDS: NYSTATIN POWDER 15GM TOP SCH ×2 (09:47→17:31)
[2019-02-01] MEDS: LACTOBACILLUS GG CAPSULE PO SCH (09:47)
[2019-02-01] MEDS: MAGNESIUM OXIDE 400MG TABLET PO SCH (09:47)
[2019-02-01 12:08] VITALS: BP 135/88
[2019-02-01] MEDS: LEVOFLOXACIN 500MG PREMIX 100 ML IV SCH (15:08)
[2019-02-01 15:55] VITALS: BP 141/68
[2019-02-01] MEDS: LOPERAMIDE 2 MG/10 ML UDC PO PRN (17:30)
[2019-02-01 20:00] VITALS: BP 109/86
[2019-02-01 21:37] LABS: AMYLASE 16 IU/L (25-115)
[2019-02-01 22:06] LABS: HEPATITIS B SURFACE ANTIGEN NEGATIVE
[2019-02-01 22:36] LABS: HEPATITIS A AB IGM NEGATIVE (NEGATIVE)
[2019-02-02] VITALS: BP 142/74
[2019-02-02] MEDS: METRONIDAZOLE 500 MG PREMIX 100 ML IV SCH ×3 (02:22→18:44)
[2019-02-02 04:00] VITALS: BP 139/71
[2019-02-02 06:01] LABS: INR 1.2; PARTIAL THROMBOPLASTIN TIME 29.3 sec (23.4-31.0); PROTHROMBIN TIME 11.9 sec (9.6-11.0)
[2019-02-02 06:21] LABS: BASOPHILS % 1.8 % (0.0-2.0); EOSINOPHILS % 1.2 % (0.0-5.0); LYMPHOCYTES % 16.4 % (20.0-50.0); MEAN CORPUSCULAR HEMOGLOBIN 25.8 pg (28.0-32.0); MEAN CORPUSCULAR VOLUME 82.5 fL (81.0-99.0); MEAN PLATELET VOLUME 8.4 fl (7.4-10.4); MONOCYTES % 11.1 % (2.0-8.0); NEUTROPHILS % 69.5 % (40.0-76.0); PLATELET 356 x1000/uL (130-400); RED BLOOD CELL COUNT 3.88 mill/uL (4.2-5.4); RED CELL DISTRIBUTION WIDTH 19.3 % (11.6-14.6)
[2019-02-02] MEDS: BLOOD SUGAR DIAGNOSTIC STRIP TEST SCH (07:27)
[2019-02-02 08:00] VITALS: BP 142/69
[2019-02-02] MEDS: LISINOPRIL 20MG TABLET PO SCH (08:54)
[2019-02-02] MEDS: METFORMIN HCL 500MG TABLET PO SCH ×2 (08:54→18:44)
[2019-02-02] MEDS: MAGNESIUM OXIDE 400MG TABLET PO SCH (08:54)
[2019-02-02] MEDS: CARVEDILOL 3.125 MG TABLET PO SCH ×2 (08:55→18:44)
[2019-02-02] MEDS: AMLODIPINE 10MG TABLET PO SCH (08:55)
[2019-02-02] MEDS: GUAIFENESIN 600MG ER TABLET PO SCH ×2 (08:55→20:37)
[2019-02-02] MEDS: FUROSEMIDE 100MG/10ML VIAL IV SCH ×3 (08:55→18:44)
[2019-02-02] MEDS: NYSTATIN POWDER 15GM TOP SCH ×2 (08:56→18:45)
[2019-02-02 12:00] VITALS: BP 122/62
[2019-02-02] MEDS: LEVOFLOXACIN 500MG PREMIX 100 ML IV SCH (13:23)
[2019-02-02] MEDS: ACETAMINOPHEN 325MG TABLET PO PRN (16:09)
[2019-02-02] MEDS: LOPERAMIDE 2 MG/10 ML UDC PO PRN (18:44)
[2019-02-02 20:00] VITALS: BP 134/61
[2019-02-03] VITALS: BP 130/57
[2019-02-03] MEDS: METRONIDAZOLE 500 MG PREMIX 100 ML IV SCH ×3 (01:53→17:00)
[2019-02-03 04:00] VITALS: BP 142/66
[2019-02-03 07:43] LABS: BASOPHILS % 1.1 % (0.0-2.0); EOSINOPHILS % 0.9 % (0.0-5.0); HEMOGLOBIN. 9.7 g/dL (12.0-16.0); LYMPHOCYTES % 15.2 % (20.0-50.0); MEAN CORPUSCULAR HEMOGLOBIN 25.9 pg (28.0-32.0); MEAN CORPUSCULAR VOLUME 82.9 fL (81.0-99.0); MEAN PLATELET VOLUME 8.9 fl (7.4-10.4); MONOCYTES % 10.6 % (2.0-8.0); NEUTROPHILS % 72.2 % (40.0-76.0); PLATELET 327 x1000/uL (130-400); RED BLOOD CELL COUNT 3.74 mill/uL (4.2-5.4); RED CELL DISTRIBUTION WIDTH 19.3 % (11.6-14.6)
[2019-02-03 08:00] VITALS: BP 126/67
[2019-02-03] MEDS: MAGNESIUM OXIDE 400MG TABLET PO SCH (09:06)
[2019-02-03] MEDS: FUROSEMIDE 100MG/10ML VIAL IV SCH ×3 (09:06→16:54)
[2019-02-03] MEDS: GUAIFENESIN 600MG ER TABLET PO SCH ×2 (09:07→20:22)
[2019-02-03] MEDS: METFORMIN HCL 500MG TABLET PO SCH ×2 (09:07→16:54)
[2019-02-03] MEDS: AMLODIPINE 10MG TABLET PO SCH (09:08)
[2019-02-03] MEDS: CARVEDILOL 3.125 MG TABLET PO SCH ×2 (09:08→16:54)
[2019-02-03] MEDS: LISINOPRIL 20MG TABLET PO SCH (09:09)
[2019-02-03] MEDS: NYSTATIN POWDER 15GM TOP SCH ×2 (09:09→17:00)
[2019-02-03 10:11] LABS: SACCHAROMYCES CEREVISIAE IGG 32.2 Units (0.0-24.9); SACCHAROMYCES CEREVISIAE IGM 26.9 Units (0.0-24.9)
[2019-02-03 12:00] VITALS: BP 126/67
[2019-02-03 13:06] LABS: CANCER ANTIGEN 125 275.3 U/mL (0.0-38.1)
[2019-02-03] MEDS: LEVOFLOXACIN 500MG PREMIX 100 ML IV SCH (14:04)
[2019-02-03 15:11] LABS: ATYPICAL pANCA <1:20 titer (Neg:<1:20)
[2019-02-03 16:00] VITALS: BP 131/72
[2019-02-03] MEDS ORDERED: DIATR MEGLU/DIATRIZOATE SOLN 30ML PO SCH (16:00)
[2019-02-04] VITALS: BP 155/75
[2019-02-04] MEDS: METRONIDAZOLE 500 MG PREMIX 100 ML IV SCH ×3 (01:01→17:06)
[2019-02-04 04:00] VITALS: BP 150/72
[2019-02-04 08:00] VITALS: BP 149/74
[2019-02-04] MEDS: NYSTATIN POWDER 15GM TOP SCH (09:00)
[2019-02-04] MEDS: MAGNESIUM OXIDE 400MG TABLET PO SCH (09:14)
[2019-02-04] MEDS: ACETAMINOPHEN 325MG TABLET PO PRN (09:14)
[2019-02-04] MEDS: METFORMIN HCL 500MG TABLET PO SCH ×2 (09:15→16:52)
[2019-02-04] MEDS: AMLODIPINE 10MG TABLET PO SCH (09:15)
[2019-02-04] MEDS: GUAIFENESIN 600MG ER TABLET PO SCH ×2 (09:15→21:18)
[2019-02-04] MEDS: LISINOPRIL 20MG TABLET PO SCH (09:16)
[2019-02-04] MEDS: CARVEDILOL 3.125 MG TABLET PO SCH ×2 (09:16→16:53)
[2019-02-04] MEDS: FUROSEMIDE 100MG/10ML VIAL IV SCH ×3 (10:15→16:52)
[2019-02-04 10:40] LABS: BASOPHILS % 1.2 % (0.0-2.0); EOSINOPHILS % 1.3 % (0.0-5.0); HEMATOCRIT. 33.4 % (36.0-48.0); HEMOGLOBIN. 10.6 g/dL (12.0-16.0); LYMPHOCYTES % 12.5 % (20.0-50.0); MEAN CORPUSCULAR HEMOGLOBIN 26.3 pg (28.0-32.0); MEAN CORPUSCULAR VOLUME 82.6 fL (81.0-99.0); MEAN PLATELET VOLUME 8.7 fl (7.4-10.4); MONOCYTES % 9.5 % (2.0-8.0); NEUTROPHILS % 75.5 % (40.0-76.0); PLATELET 381 x1000/uL (130-400); RED BLOOD CELL COUNT 4.04 mill/uL (4.2-5.4)
[2019-02-04 12:00] VITALS: BP 143/68
[2019-02-04] MEDS: LEVOFLOXACIN 500MG PREMIX 100 ML IV SCH (12:54)
[2019-02-04 16:00] VITALS: BP 138/69
[2019-02-04] MEDS: LOPERAMIDE 2 MG/10 ML UDC PO PRN (16:52)
[2019-02-04] MEDS: VANCOMYCIN HCL 1000 MG/20 ML ORAL PO SCH ×2 (18:46→23:24)
[2019-02-04 20:00] VITALS: BP 130/75
[2019-02-05] VITALS: BP 155/80
[2019-02-05] MEDS: METRONIDAZOLE 500 MG PREMIX 100 ML IV SCH ×3 (01:09→17:52)
[2019-02-05 04:00] VITALS: BP 127/63
[2019-02-05] MEDS: VANCOMYCIN HCL 1000 MG/20 ML ORAL PO SCH ×3 (05:31→17:54)
[2019-02-05] MEDS: LOPERAMIDE 2 MG/10 ML UDC PO PRN (06:04)
[2019-02-05 07:47] LABS: BASOPHILS % 1.2 % (0.0-2.0); EOSINOPHILS % 1.6 % (0.0-5.0); HEMATOCRIT. 32.5 % (36.0-48.0); HEMOGLOBIN. 10.1 g/dL (12.0-16.0); LYMPHOCYTES % 13.2 % (20.0-50.0); MEAN CORPUSCULAR VOLUME 83.3 fL (81.0-99.0); MEAN PLATELET VOLUME 8.4 fl (7.4-10.4); MONOCYTES % 9.2 % (2.0-8.0); NEUTROPHILS % 74.8 % (40.0-76.0); PLATELET 385 x1000/uL (130-400)
[2019-02-05 08:00] VITALS: BP 139/71
[2019-02-05] MEDS: GUAIFENESIN 600MG ER TABLET PO SCH ×2 (09:36→21:36)
[2019-02-05] MEDS: MAGNESIUM OXIDE 400MG TABLET PO SCH (09:36)
[2019-02-05] MEDS: METFORMIN HCL 500MG TABLET PO SCH ×2 (09:36→17:52)
[2019-02-05] MEDS: FUROSEMIDE 100MG/10ML VIAL IV SCH ×3 (09:36→17:53)
[2019-02-05] MEDS: LISINOPRIL 20MG TABLET PO SCH (09:36)
[2019-02-05] MEDS: CARVEDILOL 3.125 MG TABLET PO SCH ×2 (09:37→17:52)
[2019-02-05] MEDS: AMLODIPINE 10MG TABLET PO SCH (09:37)
[2019-02-05 12:00] VITALS: BP 153/78
[2019-02-05] MEDS: POTASSIUM CHLORIDE 20MEQ TABLET SR PO SCH (14:57)
[2019-02-05] MEDS: LEVOFLOXACIN 500MG PREMIX 100 ML IV SCH (14:57)
[2019-02-05 16:00] VITALS: BP 129/61
[2019-02-05 20:55] VITALS: BP 132/67
[2019-02-06] MEDS: VANCOMYCIN HCL 1000 MG/20 ML ORAL PO SCH ×4 (00:25→17:05)
[2019-02-06 00:42] VITALS: BP 137/66
[2019-02-06] MEDS: METRONIDAZOLE 500 MG PREMIX 100 ML IV SCH ×3 (01:59→17:05)
[2019-02-06 04:00] VITALS: BP 143/68
[2019-02-06 06:44] LABS: BASOPHILS % 1.6 % (0.0-2.0); EOSINOPHILS % 1.5 % (0.0-5.0); HEMATOCRIT. 33.1 % (36.0-48.0); HEMOGLOBIN. 10.3 g/dL (12.0-16.0); LYMPHOCYTES % 16.7 % (20.0-50.0); MEAN CORPUSCULAR HEMOGLOBIN 26.1 pg (28.0-32.0); MEAN CORPUSCULAR VOLUME 83.4 fL (81.0-99.0); MEAN PLATELET VOLUME 8.5 fl (7.4-10.4); MONOCYTES % 11.3 % (2.0-8.0); NEUTROPHILS % 68.9 % (40.0-76.0); PLATELET 415 x1000/uL (130-400); RED BLOOD CELL COUNT 3.97 mill/uL (4.2-5.4); RED CELL DISTRIBUTION WIDTH 18.9 % (11.6-14.6)
[2019-02-06 08:00] VITALS: BP 136/64
[2019-02-06] MEDS: METFORMIN HCL 500MG TABLET PO SCH ×2 (08:16→17:04)
[2019-02-06] MEDS: POTASSIUM CHLORIDE 20MEQ TABLET SR PO SCH (08:16)
[2019-02-06] MEDS: MAGNESIUM OXIDE 400MG TABLET PO SCH (08:16)
[2019-02-06] MEDS: CARVEDILOL 3.125 MG TABLET PO SCH ×2 (08:16→17:04)
[2019-02-06] MEDS: GUAIFENESIN 600MG ER TABLET PO SCH ×2 (08:16→21:22)
[2019-02-06] MEDS: LISINOPRIL 20MG TABLET PO SCH (08:16)
[2019-02-06] MEDS: AMLODIPINE 10MG TABLET PO SCH (08:16)
[2019-02-06] MEDS: FUROSEMIDE 100MG/10ML VIAL IV SCH ×3 (08:17→16:33)
[2019-02-06 12:00] VITALS: BP 121/60
[2019-02-06] MEDS ORDERED: MAGNESIUM 2 G PREMIX 50 ML IV NR (13:30)
[2019-02-06 16:00] VITALS: BP 117/65
[2019-02-06] MEDS: LOPERAMIDE 2 MG/10 ML UDC PO PRN (17:15)
[2019-02-06 20:00] VITALS: BP 120/62
[2019-02-07] VITALS (7 sets, daily range): BP systolic 111–147; BP diastolic 62–88
[2019-02-07] MEDS: VANCOMYCIN HCL 1000 MG/20 ML ORAL PO SCH ×4 (01:04→17:49)
[2019-02-07] MEDS: METRONIDAZOLE 500MG TABLET PO SCH ×4 (01:04→22:00)
[2019-02-07 06:18] LABS: BASOPHILS % 1.5 % (0.0-2.0); EOSINOPHILS % 1.8 % (0.0-5.0); HEMATOCRIT. 31.7 % (36.0-48.0); LYMPHOCYTES % 18.9 % (20.0-50.0); MEAN CORPUSCULAR HEMOGLOBIN 26.3 pg (28.0-32.0); MEAN CORPUSCULAR VOLUME 83.4 fL (81.0-99.0); MEAN PLATELET VOLUME 8.3 fl (7.4-10.4); MONOCYTES % 13.6 % (2.0-8.0); NEUTROPHILS % 64.2 % (40.0-76.0); PLATELET 405 x1000/uL (130-400); RED CELL DISTRIBUTION WIDTH 19.3 % (11.6-14.6)
[2019-02-07] MEDS: CARVEDILOL 3.125 MG TABLET PO SCH ×2 (08:10→17:48)
[2019-02-07] MEDS: LISINOPRIL 20MG TABLET PO SCH (09:00)
[2019-02-07] MEDS: METFORMIN HCL 500MG TABLET PO SCH ×2 (09:38→17:49)
[2019-02-07] MEDS: POTASSIUM CHLORIDE 20MEQ TABLET SR PO SCH (09:39)
[2019-02-07] MEDS: MAGNESIUM OXIDE 400MG TABLET PO SCH (09:39)
[2019-02-07] MEDS: GUAIFENESIN 600MG ER TABLET PO SCH (09:39)
[2019-02-07] MEDS: AMLODIPINE 10MG TABLET PO SCH (09:40)
[2019-02-07] MEDS: FUROSEMIDE 100MG/10ML VIAL IV SCH ×3 (09:42→17:49)
[2019-02-07] MEDS: ALBUMIN HUMAN 12.5GM/50ML (25%) IV SCH ×2 (13:52→18:01)
[2019-02-07] MEDS: METRONIDAZOLE 500 MG PREMIX 100 ML IV SCH (23:11)
[2019-02-08] VITALS: BP 148/81
[2019-02-08] MEDS: VANCOMYCIN HCL 1000 MG/20 ML ORAL PO SCH ×5 (01:13→23:49)
[2019-02-08] MEDS: ALBUMIN HUMAN 12.5GM/50ML (25%) IV SCH ×2 (01:13→08:53)
[2019-02-08 08:00] VITALS: BP 133/74
[2019-02-08] MEDS: FUROSEMIDE 100MG/10ML VIAL IV SCH ×3 (08:53→18:02)
[2019-02-08] MEDS: MAGNESIUM OXIDE 400MG TABLET PO SCH (08:54)
[2019-02-08] MEDS: CARVEDILOL 3.125 MG TABLET PO SCH ×2 (08:54→18:01)
[2019-02-08] MEDS: METFORMIN HCL 500MG TABLET PO SCH ×2 (08:55→18:01)
[2019-02-08] MEDS: POTASSIUM CHLORIDE 20MEQ TABLET SR PO SCH (08:55)
[2019-02-08] MEDS: LISINOPRIL 20MG TABLET PO SCH (08:55)
[2019-02-08] MEDS: AMLODIPINE 10MG TABLET PO SCH (08:56)
[2019-02-08 12:00] VITALS: BP 147/69
[2019-02-08 16:00] VITALS: BP 128/70
[2019-02-08 20:00] VITALS: BP 149/75
[2019-02-09] VITALS: BP 128/56
[2019-02-09 04:00] VITALS: BP 135/72
[2019-02-09] MEDS: VANCOMYCIN HCL 1000 MG/20 ML ORAL PO SCH ×3 (05:06→17:26)
[2019-02-09 08:00] VITALS: BP 136/69
[2019-02-09] MEDS: POTASSIUM CHLORIDE 20MEQ TABLET SR PO SCH (09:40)
[2019-02-09] MEDS: METFORMIN HCL 500MG TABLET PO SCH ×2 (09:41→17:25)
[2019-02-09] MEDS: AMLODIPINE 10MG TABLET PO SCH (09:41)
[2019-02-09] MEDS: CARVEDILOL 3.125 MG TABLET PO SCH ×2 (09:41→17:26)
[2019-02-09] MEDS: FUROSEMIDE 100MG/10ML VIAL IV SCH ×3 (09:41→17:25)
[2019-02-09] MEDS: LISINOPRIL 20MG TABLET PO SCH (09:41)
[2019-02-09] MEDS: MAGNESIUM OXIDE 400MG TABLET PO SCH (09:41)
[2019-02-09 12:06] VITALS: BP 121/82
[2019-02-09 15:59] VITALS: BP 111/67
[2019-02-09 17:28] LABS: BASOPHILS % 1.9 % (0.0-2.0); EOSINOPHILS % 1.9 % (0.0-5.0); HEMATOCRIT. 33.5 % (36.0-48.0); HEMOGLOBIN. 11.1 g/dL (12.0-16.0); MEAN CORPUSCULAR HEMOGLOBIN 27.5 pg (28.0-32.0); MEAN CORPUSCULAR VOLUME 83.3 fL (81.0-99.0); MEAN PLATELET VOLUME 7.8 fl (7.4-10.4); MONOCYTES % 13.5 % (2.0-8.0); NEUTROPHILS % 57.7 % (40.0-76.0); PLATELET 481 x1000/uL (130-400); RED BLOOD CELL COUNT 4.02 mill/uL (4.2-5.4); RED CELL DISTRIBUTION WIDTH 19.2 % (11.6-14.6)
== END 2019-02-09 19:25 | disposition home or self-care (01) | DRG 720 ==
LOC: ER 15:30 → 8WST 17:34 → EDBEDREQ 17:40 → ENRESERV 17:57 → 5EST 01-20 11:47 → 6WST 01-24 23:57 → 7WST 02-06 18:59
PROVIDERS: ADMIT Internal Medicine; ATTEND Internal Medicine
PROC: 0W993ZZ Drainage of Right Pleural Cavity, Percutaneous Approach (ICD-10-PCS; principal; 2019-01-22)
PROC: 0W993ZZ Drainage of Right Pleural Cavity, Percutaneous Approach (ICD-10-PCS; 2019-02-02)
DX: A41.51 Sepsis due to Escherichia coli [E. coli] (principal); J96.01 Acute respiratory failure with hypoxia; N17.0 Acute kidney failure with tubular necrosis; E43 Unspecified severe protein-calorie malnutrition; I50.23 Acute on chronic systolic (congestive) heart failure; J18.9 Pneumonia, unspecified organism; E66.01 Morbid (severe) obesity due to excess calories; I31.3 Pericardial effusion (noninflammatory); J91.8 Pleural effusion in other conditions classified elsewhere; L89.150 Pressure ulcer of sacral region, unstageable; L89.220 Pressure ulcer of left hip, unstageable; L89.210 Pressure ulcer of right hip, unstageable; R19.7 Diarrhea, unspecified; I11.0 Hypertensive heart disease with heart failure; L89.312 Pressure ulcer of right buttock, stage 2; E87.8 Other disorders of electrolyte and fluid balance, not elsewhere classified; I42.9 Cardiomyopathy, unspecified; E11.9 Type 2 diabetes mellitus without complications; N39.0 Urinary tract infection, site not specified; E83.42 Hypomagnesemia; B96.89 Other specified bacterial agents as the cause of diseases classified elsewhere; D64.9 Anemia, unspecified; F32.9 Major depressive disorder, single episode, unspecified; I44.1 Atrioventricular block, second degree; K80.51 Calculus of bile duct without cholangitis or cholecystitis with obstruction; K76.0 Fatty (change of) liver, not elsewhere classified; Z79.4 Long term (current) use of insulin; Z79.899 Other long term (current) drug therapy; Z71.3 Dietary counseling and surveillance; Z79.84 Long term (current) use of oral hypoglycemic drugs; Z68.30 Body mass index [BMI] 30.0-30.9, adult
CPT/HCPCS: 32555; 36415; 36600; 71045; 71250; 74018; 74177; 76700; 76830; 76856; 80048; 80061; 80076; 80305; 81003; 81025; 82040; 82105; 82140; 82150; 82248; 82375; 82378; 82805; 82962; 83036; 83605; 83615; 83735; 83880; 84134; 84439; 84443; 84484; 84702; 84703; 86256; 86304; 86671; 86705; 86709; 86803; 87015; 87045; 87070; 87077; 87186; 87340; 87389; 87427; 87449; 88108; 88312; 89055; 93005; 93306; 93308; 93971; 94618; 96374; 97110; 97163; 97166; 97530; 97535; 99285; J0696; J1650; J1815; J1940; J1956; J3370; J3475; J3490; P9047

== ENCOUNTER 2019-08-17 11:15 | Emergency (ER) | payer OTHER ==
[~2019-08-17] VITALS: Ht 167.6 cm; Wt 100.0 kg
[~2019-08-17 11:15] MED LIST: AMLO10TA80 PO; CARV6.2548 PO; FAMO20TA8 MT; LISI10TA5 MT; METF-416 MT; POTA20TA82 MT; RIFA300C4 PO; lasix
[2019-08-17] MEDS ORDERED: IBUPROFEN 600MG TABLET PO ONE (12:15)
[2019-08-17 12:27] VITALS: BP 166/95
== END 2019-08-17 15:03 | disposition home or self-care (01) ==
LOC: ER 11:15
DX: S80.02XA Contusion of left knee, initial encounter (principal); W01.10XA Fall on same level from slipping, tripping and stumbling with subsequent striking against unspecified object, initial encounter; Y93.89 Activity, other specified; Y92.89 Other specified places as the place of occurrence of the external cause; R03.0 Elevated blood-pressure reading, without diagnosis of hypertension
CPT/HCPCS: 73560; 99283

== ENCOUNTER 2019-11-15 11:29 | Emergency (ER) | payer OTHER ==
[~2019-11-15] VITALS: Ht 165.1 cm; Wt 102.5 kg
[2019-11-15] MEDS ORDERED: KETOROLAC 30MG/ML VIAL IM STA (12:05)
[2019-11-15] MEDS ORDERED: HYDROCODONE/ACETAMINOPHEN 5/325MG TABLET PO STA ×2 (12:05→14:40)
[2019-11-15 13:36] LABS: HCG SCREEN NEGATIVE
[2019-11-15] MEDS ORDERED: MORPHINE SULFATE 4 MG/ML CPJ (NOT FOR IM USE) IV STA (14:51)
[2019-11-15] MEDS ORDERED: MORPHINE SULFATE 4 MG/ML CPJ (NOT FOR IM USE) IV ONE (21:30)
[2019-11-15 23:13] LABS: BASOPHILS % 1.9 % (0.0-2.0); EOSINOPHILS % 1.7 % (0.0-5.0); HEMATOCRIT. 24.8 % (36.0-48.0); MEAN CORPUSCULAR HEMOGLOBIN 29.7 pg (28.0-32.0); MEAN CORPUSCULAR VOLUME 91.6 fL (81.0-99.0); MEAN PLATELET VOLUME 9.9 fl (7.4-10.4); MONOCYTES % 8.5 % (2.0-8.0); NEUTROPHILS % 78.9 % (40.0-76.0); PLATELET 220 x1000/uL (130-400); RED BLOOD CELL COUNT 2.71 mill/uL (4.2-5.4)
[2019-11-15 23:16] LABS: CHLORIDE 112 mEq/L (98-107)
[2019-11-15 23:20] LABS: INR 1.1; PROTHROMBIN TIME 12.3 sec (9.6-11.0)
[2019-11-16 04:19] VITALS: BP 156/77
== END 2019-11-16 04:20 | disposition short-term general hospital (02) ==
LOC: ER 11:45
DX: S72.492A Other fracture of lower end of left femur, initial encounter for closed fracture (principal); M25.561 Pain in right knee; W01.198A Fall on same level from slipping, tripping and stumbling with subsequent striking against other object, initial encounter; Y93.01 Activity, walking, marching and hiking; Y92.89 Other specified places as the place of occurrence of the external cause; I10 Essential (primary) hypertension; Z95.5 Presence of coronary angioplasty implant and graft; E11.621 Type 2 diabetes mellitus with foot ulcer; L97.419 Non-pressure chronic ulcer of right heel and midfoot with unspecified severity; Z79.84 Long term (current) use of oral hypoglycemic drugs; Z79.899 Other long term (current) drug therapy
CPT/HCPCS: 29505; 36415; 71045; 73562; 80053; 82962; 84703; 85025; 85610; 93005; 96372; 96374; 96376; 99285; J1885; J2270